=== PATIENT | male | born 1990 | race Caucasian/White ===

== ENCOUNTER 2022-02-19 12:05 | Emergency (ER) | payer SELFPAY ==
--- NOTE | ~2022-02-19 | XR_ITS ---
EXAMINATION: XR lumbar spine min 4V DATE: 02/19/2022 13:52 INDICATION: Low back pain. TECHNIQUE: 6 views of lumbar spine were obtained. COMPARISON: None. FINDINGS: Bone alignment is normal. Vertebral body heights and intervertebral disc heights are normal . The facet joints are unremarkable. There are gallstones in the gallbladder. IMPRESSION: 1. Normal lumbar spine. 2. Cholelithiasis. Reviewed, dictated and finalized at location A.
[2022-02-19 12:44] VITALS: BP 158/105; PULSE 88; RESP 18; TEMP 36.9; O2SAT 98
--- NOTE | 2022-02-19 13:08 | PC.NURSE ---
Patient complains of ankle swelling X1 week. Some swelling noted by this RN, but no pitting edema. Patient states there was some last night .
--- NOTE | 2022-02-19 13:09 | PC.NURSE ---
Patient denies CP or SOB
--- NOTE | 2022-02-19 13:59 | ED.EXTPRO ---
HPI - Extremity Problem General Chief complaint: Extremity Problem,Nontraumatic Stated complaint: bilateral leg pain and ankle swelling Time Seen by Provider: 02/19/22 13:03 History of Present Illness HPI Narrative: Pt is a 32 y/o male, without significant PMHx, presents to ED via POV with 4 day hx of bilateral hip pain he describes as burning and aching, worse with movement and alleviated at rest without known injury. He does endorse hx of right heel pain last week that progressively worsened, described as knife like or stabbing and worse with weight bearing. He laid around or sat for the past 4 days and his heel pain improved however, his back began to hurt and he noticed his left medial ankle was swollen. He googled his symptoms and became concerned, prompting his visit. He denies hx of trauma, calf pain or swelling, ankle injuries or hx of gout. He does not take daily medications and denies illicit drug use or ETOH. No modifying factors have been attempted. Related Data Allergies Allergy/AdvReac Type Severity Reaction Status Date / Time No Known Allergies Allergy Unverified 02/19/22 12:58 Review of Systems Review of Systems: refer to HPI Musculoskeletal: Comments: refer to HPI Exam Narrative: Pt is alert, non toxic appearing, in NAD Const: Nutritional Appearance: obese Orientation/consciousness: patient oriented x3 HENMT: Head: normal to inspection Eyes: Conjunctivae: conjunctivae normal EOM: EOMs intact bilaterally Neck: Neck: normal visual inspection, no lymphadenopathy and no meningeal signs Resp: Effort & Inspection: normal respiratory effort Auscultation: clear to auscultation bilaterally Cardio: Rate: regular rate Rhythm: regular rhythm Other: distal PMS intact pedal and PT pulses are 2+ bilaterally and symmetrical Back/Spine/Pelvis: Back: no CVA tenderness Other: Pt is TTP over the lumbar paraspinal muscles and along the SI joints bilaterally. No palpable spasm, no T or L spine point tenderness, no step offs. No gross curvature abnormality Skin: General skin exam: normal color Neuro: General: patient oriented x3, moves all extremities, no meningeal signs, no focal motor deficits and CN's II-XI intact bilaterally Extrem: Other: left medial ankle is mildly swollen and non tender. Edema is not pitting. There is no erythema or pain with ROM, no calf TTP or palpable cord. Psych: Mental Status: mental status grossly normal Other: mildly anxious Course Course Emergency Course: Lumbar spine plain film imaging. Vital Signs Vital signs: Vital Signs Temperature 36.9 C 02/19/22 12:44 Pulse Rate 88 02/19/22 12:44 Respiratory Rate 18 02/19/22 12:44 Blood Pressure 158/105 H 02/19/22 12:44 Pulse Oximetry 98 02/19/22 12:44 Oxygen Delivery Room Air 02/19/22 12:44 Temperature 36.9 C 02/19/22 12:44 Pulse Rate 88 02/19/22 12:44 Respiratory Rate 18 02/19/22 12:44 Blood Pressure 158/105 H 02/19/22 12:44 Pulse Oximetry 98 02/19/22 12:44 Oxygen Delivery Room Air 02/19/22 12:44 MDM - Extremity (Nontraumatic) MDM Narrative Medical decision making narrative: Pt's lumbar spine imaging is unremarkable. Incidental finding of cholelithiasis noted. Pt is updated. I suspect he has over worked his left ankle compensating for plantar fasciitis of the right foot and now, his low back is also strained. Will treat with muscle relaxants, NSAIDs and PCP FU is stressed early next week if pain is not improving. Pt is agreeable with plan. Differential Diagnosis Differential diagnosis: Likely other (lumbosacral strain, sciatica, DDD) Discharge Plan Discharge Clinical Impression: Acute lumbosacral myofascial strain, Left ankle strain, Plantar fasciitis of right foot Patient Disposition: Home, Self-Care Condition: Stable Instructions: Antibiotic Form, Ankle Sprain (ED), Plantar Fasciitis (ED), Low Back Strain (ED) Additional Instructions: REST, ICE THE AREA OFF A
[2022-02-19 15:17] VITALS: BP 139/97; PULSE 87; RESP 18; TEMP 36.6; O2SAT 99
== END 2022-02-19 15:18 | disposition home or self-care (01) ==
PROVIDERS: Emergency Provider Nurse Practitioner Family; PCP Internal Medicine
DX: S39.012A Strain of muscle, fascia and tendon of lower back, initial encounter (principal); S96.912A Strain of unspecified muscle and tendon at ankle and foot level, left foot, initial encounter; M72.2 Plantar fascial fibromatosis; K80.20 Calculus of gallbladder without cholecystitis without obstruction; X58.XXXA Exposure to other specified factors, initial encounter
CPT/HCPCS: 72110; 99283